=== PATIENT | female | born 1985 | race Caucasian/White ===

== ENCOUNTER 2024-08-20 16:25 | Outpatient (CLI) | payer OTHER, SELFPAY | END 2024-08-20 16:26 | disposition home or self-care (01) | LOC: LKVREF 16:26 | PROVIDERS: Visit Provider Emergency Medicine | DX: R03.0 Elevated blood-pressure reading, without diagnosis of hypertension (principal) | CPT/HCPCS: 80048 ==

== ENCOUNTER 2024-09-03 07:13 | Day surgery (SDC) | payer OTHER, SELFPAY ==
[2024-09-03] VITALS (15 sets, daily range): BP systolic 125–156; BP diastolic 85–112; PULSE 73–95; RESP 15–20; TEMP 36.6–37.3; O2SAT 93–99; BMI 32.8
--- NOTE | 2024-09-03 07:34 | W.PM.H&PU ---
History & Physical Update History & Physical Update H&P Reviewed and patient assessed: No changes noted
--- NOTE | 2024-09-03 07:34 | PM.ORPRC ---
Procedure Note Date of procedure: 09/03/24 Procedure: PREOPERATIVE DIAGNOSIS: 1. Left knee medial meniscus root tear 2. Left knee chondromalacia POSTOPERATIVE DIAGNOSIS: 1. Left knee medial meniscus root tear 2. Left knee chondromalacia PROCEDURE: 1. Left knee arthroscopic medial meniscus root repair 2. Left knee arthroscopic chondroplasty of the medial femoral condyle and trochlea SURGEON: Felix Chin M.D. BASKET HAND BRAIDER: Miley Hernandez P.A.-C. An assistant customer service manager was critical for this case to aid in patient positioning, knee manipulation, instrument exchange, and wound closure. ANESTHESIA: Spinal EBL: 5 mL TOURNIQUET: 104 minutes minutes at 250 mmHg COMPLICATIONS: None evident IMPLANTS: Arthrex SutureLoc Implant INDICATIONS: Patient is a 39-year-old female with recent history of left knee pain. MRI was performed, which revealed a medial meniscus root tear. Recommendation was subsequently made for surgical intervention consisting medial meniscus root repair to reduce knee pain, improve knee function, and reduce risk and rate of arthritis progression. Prior to surgery, the risks and benefits of the procedure were discussed with patient, all questions were answered, and informed consent was obtained. FINDINGS: Examination under anesthesia revealed negative Lorie's and posterior drawer. Knee was stable to varus and valgus stress. Arthroscopic examination revealed a complete tear of the medial meniscus at its posterior root attachment. Diffuse grade 3 chondromalacia involving the medial femoral condyle with grade 1 chondral changes of the medial tibial plateau. Grade 1 chondromalacia of the lateral tibial plateau. Grade 3 chondral malacia of the trochlea which measured 1 cm x 1.5 cm. Grade 2 chondral changes of the inferior patella pole. Normal cartilage of the lateral femoral condyle. ACL and PCL intact. Lateral meniscus was intact. DESCRIPTION OF PROCEDURE: Patient was seen preoperatively and operative site was marked. She was then brought to the operating room where spinal anesthesia was administered. Patient was then placed supine on the operating table and given IV Ancef preoperatively for prophylaxis. A tourniquet was placed on the operative thigh. The operative lower extremity was prepped and draped in the appropriate sterile fashion, and the operative leg was placed into the leg fabian. A surgical time-out was performed confirming patient identity, surgical site, and procedure. The operative lower extremity was exsanguinated and tourniquet inflated to 250 mmHg. Anterolateral and anteromedial portal sites were injected with 0.25% bupivacaine with epinephrine. Anterolateral portal was established with an 11 blade. Anteromedial portal was established after localization with spinal needle. A portion of the retropatellar fat pad was removed with the shaver to allow for adequate visualization. Diagnostic arthroscopy was performed with findings as noted above. Attention was 1st directed to the loose cartilage of the trochlea and medial femoral condyle. Loose cartilage was debrided using the arthroscopic shaver. Following debridement of each area, a probe was introduced and remnant cartilage was confirmed to be stable. Attention was then directed to the repair of the medial meniscus. Arthroscopic shaver and radiofrequency ablator were used to clear soft tissue medial to the PCL, and a small reverse notchplasty was performed to allow for visualization of the root attachment site. Prominent medial tibial spine was also debrided with the shaver. Root attachment site was then debrided using the shaver arthroscopic rasp. A passport cannula was placed into the anteromedial portal. The drill guide was inserted and placed in the appropriate position in the center of the root attachment footprint. A small incision was made over the anterior medial proximal tibia to allow for the guide to sit on the cortex of the anterior medial proximal tibia. The 2.4 mm drill pin was drilled to create a transtibial tunnel. After confirming this tunnel was in a satisfactory position, shuttle sutures were used to pass a the SutureLoc implant into position. Once the SutureLoc was placed in the subchondral bone, it was tensioned and secured into position. The meniscal scorpion was then used to pass the 1st repair stitch through the meniscal root tissue. Repair stitch was then shuttled through the knotless mechanism and loosely tensioned. A 2nd repair stitch was then placed through the meniscal root tissue slightly anterior to the 1st repair stitch. It was then shuttled through the knotless mechanism in a similar fashion. Both repair stitches were then tensioned securing the meniscus root back to its footprint. The knee was then cycled several times and the repair stitches were retentioned. A probe was then introduced, and the meniscus was confirmed to be stable, and the meniscal root was firmly secured to its footprint. The remnant sutures from the implant were then cut at the anterior portion of the tibial tunnel. A power pick was then used to microfracture the notch to create bone bleeding to assist in meniscus healing. The tourniquet was then released and blood was noted to emanate from the power pick microfracture sites. At this stage, surgical instruments and a passport cannula were removed, and excess fluid was drained from the joint. Surgical incisions were closed with 3-0 Vicryl in interrupted subcutaneous stitches followed by 3-0 Monocryl subcuticular stitches and Dermabond. Sterile dressings were applied and the the knee was placed into a hinged knee brace.. The patient was awoken from anesthesia and transferred to the PACU in stable condition. PLAN: 1. Ice and elevation for pain and swelling. 2. Acetaminophen and oxycodone as needed for pain control. 3. Aspirin 81 mg twice daily for 2 weeks for DVT prophylaxis. 4. Touchdown weight-bearing right lower extremity for 4 weeks. Use crutches for assistance with ambulation. 5. Knee brace to be locked in extension when ambulating. Brace may be unlocked and knee flexed to 90? when not ambulating. 6. Knee range of motion and quad sets/straight leg raise regularly. 7. Physical therapy per the Complex Meniscus Repair Rehabilitation Protocol. 8. Follow up in orthopedic clinic in 1-2 weeks for a wound check.
--- NOTE | 2024-09-03 07:44 | SUR.PREOP ---
history of hysterectomy
[2024-09-03] MEDS: SODIUM CHLORIDE 0.9 % (FLUSH) 10 ML SYRINGE IVF ×2 (07:55→11:58)
[2024-09-03] MEDS: LACTATED RINGERS 1000 ML 1,000 ML 100 ML IV (07:55)
[2024-09-03] MEDS: CEFAZOLIN 1 GM inj IVP (08:55)
[2024-09-03] MEDS: BUPIVACAINE 0.25 %/EPI 1:200K 30 ml INJECTION (10:55)
--- NOTE | 2024-09-03 11:10 | P.ANES_ITS ---
Anesthesia Charges Start Date/Time Anesthesia Start Date: 09/03/24 Anesthesia Start Time: 08:28 Stop Date/Time Anesthesia Stop Date: 09/03/24 Anesthesia Stop Time: 11:12 Coding CPT Codes CPT Codes: ANESTH KNEE JOINT SURGERY - 15255 ([id number]) QK - PROCESS MOLD TECHNICIAN 2-4 CNCRNT ANES PROC, QX - CLOTH TEARER SVC W/ MD MED DIRECTION, P2 - PATIENT W/MILD SYST DISEASE
--- NOTE | 2024-09-03 11:10 | W.ANESCHARGE ---
Anesthesia Charges Start Date/Time Anesthesia Start Date: 09/03/24 Anesthesia Start Time: 08:28 Stop Date/Time Anesthesia Stop Date: 09/03/24 Anesthesia Stop Time: 11:12 Coding CPT Codes CPT Codes: ANESTH KNEE JOINT SURGERY - 74531 ([id number]) QK - CATTLE ALLEY WORKER 2-4 CNCRNT ANES PROC, QX - ECOMMERCE MERCHANDISING MANAGER SVC W/ MD MED DIRECTION, P2 - PATIENT W/MILD SYST DISEASE
[2024-09-03] MEDS: fentaNYL 100 MCG/2 ML inj 50 MCG IVP ×2 (11:21→11:33)
--- NOTE | 2024-09-03 11:31 | P.ANES_ITS ---
Anesthesia Charges Start Date/Time Anesthesia Start Date: 09/03/24 Anesthesia Start Time: 08:28 Stop Date/Time Anesthesia Stop Date: 09/03/24 Anesthesia Stop Time: 11:12 Coding CPT Codes CPT Codes: ANESTH KNEE JOINT SURGERY - 80343 ([id number]) P2 - PATIENT W/MILD SYST DISEASE, QK - MARBLE MASON 2-4 CNCRNT ANES PROC, QX - ORDER ENTRY SPECIALIST SVC W/ MD MED DIRECTION
--- NOTE | 2024-09-03 11:31 | W.ANESCHARGE ---
Anesthesia Charges Start Date/Time Anesthesia Start Date: 09/03/24 Anesthesia Start Time: 08:28 Stop Date/Time Anesthesia Stop Date: 09/03/24 Anesthesia Stop Time: 11:12 Coding CPT Codes CPT Codes: ANESTH KNEE JOINT SURGERY - [id number] ([id number]) P2 - PATIENT W/MILD SYST DISEASE, QK - PARKING ASSISTANT 2-4 CNCRNT ANES PROC, QX - INSPECTOR CANNED FOOD RECONDITIONING SVC W/ MD MED DIRECTION
[2024-09-03] MEDS: HYDROmorphone 0.5 mg/0.5 ml inj IVP (11:57)
[2024-09-03] MEDS: hydrOXYzine pamoate 25 MG CAPSULE PO (11:58)
[2024-09-03] MEDS: IBUPROFEN 200 MG TABLET 400 MG PO (11:58)
--- NOTE | 2024-09-03 14:28 | SUR.PHASEII ---
1415: PT in with patient for crutch training.
== END 2024-09-03 14:57 | disposition home or self-care (01) ==
PROVIDERS: Visit Provider Orthopaedic Surgery
PROC: (CPT 29882; principal; 2024-09-03 08:15)
DX: S83.242A Other tear of medial meniscus, current injury, left knee, initial encounter (principal); M94.262 Chondromalacia, left knee
CPT/HCPCS: 29882; 01400; 81025; 97116; 97161; 97530; A9270; C1713; J0690; J1100; J1171; J2250; J2405; J2704; J3010; J3490; J7120; L1833